=== PATIENT | female | born 1970 | race Hispanic/Latino ===

== ENCOUNTER 2017-10-10 11:53 | Emergency (ER) | payer OTHER ==
[~2017-10-10] VITALS: Ht 175.3 cm; Wt 99.8 kg
[~2017-10-10 11:53] MED LIST: IBUPROFEN800 MG PO; [UNRECOGNIZED DRUG - OTHER]
[2017-10-10] MEDS ORDERED: PREDNISONE 20 MG TAB PO ONE (12:30)
[2017-10-10] MEDS ORDERED: HYDROCODONE/APAP 5MG-325MG TAB PO ONE (12:30)
[2017-10-10] MEDS ORDERED: ALBUTEROL/IPRATROPIUM 3 ML NEB NEB ONE (12:30)
--- NOTE | 2017-10-10 13:35 | Diagnostic Imaging Report ---
PROCEDURE: Frontal and lateral views of the chest. COMPARISON: Chest 2 views 06/13/2012. INDICATIONS: COUGH, CHEST CONGESTION FINDINGS: Lines/tubes: None. Lungs: The lungs are well inflated and clear. There is no evidence of pneumonia or pulmonary edema. Pleura: There is no pleural effusion or pneumothorax. Heart and mediastinum: The heart and the mediastinum are normal. Bones: No acute bony abnormality. IMPRESSION: No acute radiographic abnormality. Dictated by: Carl Taylor M.D. on 10/10/2017 at 13:43 Electronically approved by: Carl Taylor M.D. on 10/10/2017 at 13:43
[2017-10-10 15:20] VITALS: BP 134/92
[2017-10-10] MEDS ORDERED: PREDNISONE 20 MG TAB ONE (16:59)
== END 2017-10-10 16:48 | disposition home or self-care (01) ==
LOC: ER 11:53
DX: R06.00 Dyspnea, unspecified (principal); R05 Cough; J20.9 Acute bronchitis, unspecified
CPT/HCPCS: 71020; 94640; 99283

== ENCOUNTER 2022-12-16 05:56 | Emergency (ER) | payer OTHER ==
[~2022-12-16] VITALS: Ht 175.3 cm; Wt 95.3 kg
[2022-12-16] MEDS ORDERED: SODIUM CHLORIDE 0.9% 1000ML 1,000 ML IV STA (06:05)
[2022-12-16] MEDS ORDERED: ONDANSETRON HCL INJ 2MG/ML 2ML 2 MG/ML VIAL IV STA (06:05)
[2022-12-16] MEDS ORDERED: Morphine 4mg INJECTION 4 MG/ML INJ IV STA (06:05)
[2022-12-16 06:17] LABS: BASOPHILS # (AUTO) 0.1 (0.0-0.1); BASOPHILS % 1.3 % (0.0-1.0); EOSINOPHILS # (AUTO) 0.2 (0.0-0.4); HEMATOCRIT 41.3 % (34.2-44.1); LYMPHOCYTES # (AUTO) 2.6 (1.0-3.2); LYMPHOCYTES % 50.4 % (18.0-39.1); MEAN CORPUSCULAR HEMOGLOBIN 31.8 pg (28-32); MEAN CORPUSCULAR HGB CONC 33.9 g/dL (31-35); MEAN CORPUSCULAR VOLUME 93.9 fL (81-99); MONOCYTES # (AUTO) 0.5 (0.2-0.8); MONOCYTES % 9.4 % (4.4-11.3); NEUTROPHILS # (AUTO) 1.8 (2.1-6.9); NEUTROPHILS % 34.3 % (38.7-80.0); PLATELET COUNT 239 x10e3/uL (140-360); RED CELL DISTRIBUTION WIDTH 12.7 % (11.7-14.4)
[2022-12-16 06:33] LABS: INR 0.85; PROTHROMBIN TIME 11.9 seconds (11.9-14.5)
[2022-12-16 06:34] LABS: PARTIAL THROMBOPLASTIN TIME 36.2 seconds (23.8-35.5)
[2022-12-16 06:47] LABS: ALBUMIN 4.2 g/dL (3.5-5.0); ALBUMIN/GLOBULIN RATIO 1.1 (0.8-2.0); CALCIUM 9.2 mg/dL (8.4-10.2); CREATININE, SERUM 0.93 mg/dL (0.57-1.11); MAGNESIUM 1.6 MG/DL (1.3-2.1)
[2022-12-16 07:05] LABS: CREATINE KINASE MB 5.2 ng/mL (0-5.0)
[2022-12-16] MEDS ORDERED: DICYCLOMINE HCL20 MG PO (09:29)
[2022-12-16] MEDS ORDERED: ONDANSETRON ODT4 MG PO (09:29)
== END 2022-12-16 09:51 | disposition home or self-care (01) ==
LOC: ER 06:00
DX: R10.11 Right upper quadrant pain (principal); R94.31 Abnormal electrocardiogram [ECG] [EKG]
CPT/HCPCS: 36415; 71045; 76705; 80053; 82550; 82553; 83690; 83735; 84484; 85025; 85610; 85730; 93005; 99284; C9113; J2270; J2405; J7030

== ENCOUNTER 2023-12-18 14:16 | Emergency (ER) | payer OTHER ==
[~2023-12-18] VITALS: Ht 175.3 cm; Wt 113.4 kg
[~2023-12-18 14:16] MED LIST changes: +DICYCLOMINE HCL20 MG PO; +ONDANSETRON ODT4 MG PO
[2023-12-18] MEDS: SODIUM CHLORIDE 0.9% 500ML 500 ML IV ONE (16:39)
[2023-12-18] MEDS: KETOROLAC TROMETHAMINE 30 MG/ML VIAL IV STA (16:40)
[2023-12-18] MEDS: METOCLOPRAMIDE HCL 10 MG/2ML VIAL IV ONE (16:40)
[2023-12-18] MEDS: DIPHENHYDRAMINE HCL INJ 50 MG/ML VIAL IV ONE (16:40)
[2023-12-18] MEDS ORDERED: FIORICET 50-301 EACH PO (17:39)
[2023-12-18 18:02] VITALS: BP 137/84; PULSE 73; RESP 18; TEMP 98.7; O2SAT 100
== END 2023-12-18 18:00 | disposition home or self-care (01) ==
LOC: ER 15:35
DX: R51.9 Headache, unspecified (principal)
CPT/HCPCS: 70450; 99284; J1200; J1885; J2765; J7040

== ENCOUNTER → 2025-02-16 | Outpatient (REF) | payer BC ==
[~2025-02-16] MED LIST changes: +FIORICET 50-301 EACH PO
== END ==
LOC: RAD 10:45
PROVIDERS: ATTEND Plastic Surgery
DX: M25.522 Pain in left elbow (principal)